=== PATIENT | male | born 1950 | race Two or more races ===

== ENCOUNTER 2018-02-06 07:30 | Emergency (ER) | payer MEDICARE, MEDICAID ==
[~2018-02-06] VITALS: Ht 162.6 cm; Wt 66.7 kg
[~2018-02-06 07:30] MED LIST: METFORMIN PO
[2018-02-06 07:54] VITALS: BP 175/98
[2018-02-06] MEDS ORDERED: cefTRIAXone SOD 1,000 MG VL IM ONE (08:30)
== END 2018-02-06 08:55 | disposition home or self-care (01) ==
LOC: ER 07:30
DX: N39.0 Urinary tract infection, site not specified (principal); E11.9 Type 2 diabetes mellitus without complications; I10 Essential (primary) hypertension
CPT/HCPCS: 99283; J0696

== ENCOUNTER 2019-08-18 20:08 | Inpatient (IN) | payer OTHER, MEDICAID ==
[~2019-08-18] VITALS: Ht 162.6 cm; Wt 63.3 kg
[2019-08-18 20:56] LABS: Hematocrit 44.2 % (41.0-53.0); Hemoglobin 15.1 g/dL (13.5-17.5); Mean Corpuscular Hemoglobin 29.8 pg (28.0-32.0); Mean Corpuscular Hgb Conc. 34.3 g/dL (32.0-36.0); Mean Corpuscular Volume 86.9 fL (80.0-100.0); Platelet Count (auto) 229 10^3/uL (140-450); Red Blood Cells 5.09 10^6/uL (4.5-5.90); Red Cell Distribution Width 13.8 % (11.8-14.3); White Blood Cell 23.4 10^3/uL (4.4-10.8)
[2019-08-18 21:02] LABS: Basophils % (manual) 0 (0.0-2.0); Blast Cells 0; Eosinophils % (manual) 0 (0-7); Metamyelocytes % 0; Myelocytes % 0; Promyelocytes % 0; Reactive Lymphocytes 0
[2019-08-18 21:21] LABS: Albumin 3.7 g/dL (3.4-5.0); Anion Gap 9 (5-15); Blood Urea Nitrogen 16 mg/dL (7-18); Calcium 9.2 mg/dL (8.5-10.1); Carbon Dioxide 26 mmol/L (21-32); Chloride 99 mmol/L (98-107); Glucose 279 mg/dL (74-106); Potassium 3.7 mmol/L (3.5-5.1); Sodium 134 mmol/L (136-145)
[2019-08-18 21:27] LABS: Alanine Aminotransferase 206 U/L (16-61); Alkaline Phosphatase 307 U/L (45-117); Aspartate Aminotransferase 117 U/L (15-37); BUN/Creatinine Ratio 16.8; Bilirubin, Total 4.5 mg/dL (0.2-1.0); GFR African American 101 mL/min; GFR Non-African American 84 mL/min
[2019-08-18 21:33] LABS: INR 1.01 (0.9-1.15); Partial Thromboplastin Time 23.9 sec (23.64-32.05)
[2019-08-18 22:27] LABS: Band Neutrophils % (manual) 10; Lymphocytes % (manual) 5 (10.0-50.0); Monocytes % (manual) 3 (0-12)
[2019-08-19] MEDS ORDERED: ONDANSETRON HCL 4 MG/2 ML VIAL IV ONE (00:30)
[2019-08-19] MEDS ORDERED: HYDROmorphone HCL 2 MG/ML VL IV ONE (00:30)
[2019-08-19] MEDS ORDERED: SODIUM CHLORIDE 0.9% 1,000 ML IV SCH (02:14)
[2019-08-19] MEDS ORDERED: MORPHINE SULFATE 4 MG/ML SYR/VIAL IV PRN (02:15)
[2019-08-19] MEDS ORDERED: DOCUSATE SOD 100 MG CAP PO PRN (02:15)
[2019-08-19] MEDS: metroNIDAZOLE 500MG/100ML 100 ML IV SCH ×2 (02:15→05:14)
[2019-08-19] MEDS ORDERED: HYDROcodone-ACET 5/325MG TAB PO PRN (02:15)
[2019-08-19] MEDS ORDERED: NITROGLYCERIN 0.4 MG SL TAB SL PRN (02:15)
[2019-08-19] MEDS ORDERED: MORPHINE SULF INJ 2 MG/ML SYRINGE 1ML IV PRN (02:15)
[2019-08-19] MEDS ORDERED: ACETAMINOPHEN 325 MG TAB PO PRN (02:15)
[2019-08-19] MEDS ORDERED: DEXTROSE (50%) 50ML SYRG IV PRN (02:15)
[2019-08-19] MEDS ORDERED: ONDANSETRON HCL 4 MG/2 ML VIAL IV PRN (02:15)
[2019-08-19 04:23] VITALS: BP 123/70
--- NOTE | 2019-08-19 04:23 | NUR ---
Telemetry admit from ER KWESI DYER admitted to Telemetry unit. Patient oriented to SARITHA BAPTISTE RN primary RN, unit, room, bed, and unit policies regarding patient care and visiting hours. Patient now on continuous telemetry monitoring, tele box #5 and telemetry reading on arrival to unit is SR 88 bpm. Patient placed on bedside oxygen 2L NC, weighed by bedscale and encouraged to call if he needs something. Fall and safety precautions in place. Call light within reach and able to use. All questions and concerns addressed, patient verbalized understanding and in agreement. Will continue to monitor q1h and prn.
[2019-08-19] MEDS: ACCU-CHEK COMFORT CURVE STRIP VI SCH ×4 (04:40→16:30)
[2019-08-19] MEDS: InsuLIN REG 1unit/0.01ml Soln (100units/ml) SC SCH ×4 (04:42→16:30)
--- NOTE | 2019-08-19 05:50 | NUR ---
ON-CALL PHARMACIST CALLED SPOKE TO PHARMACY STAFF MEMBER REGARDING MEDICATION THAT IS NOT AVAILABLE IN [facility]. STAFF MEMBER INSTRUCTED THIS RN THAT MEDICATION WILL "PROBABLY BE AVAILABLE" WITHIN NEXT COMING MINUTES. WILL CONTINUE TO MONITOR.
[2019-08-19] MEDS ORDERED: SIMV-8 PO (06:20)
[2019-08-19] MEDS ORDERED: METF-929 PO (06:20)
--- NOTE | 2019-08-19 06:20 | NUR ---
ATTEMPTED TO CALL ON-CALL PHARMACY REGARDING MEDICATION STILL NOT YET AVAILABLE. NO ANSWER. WILL CONTINUE TO TRY AGAIN LATER.
--- NOTE | 2019-08-19 06:30 | NUR ---
CALLED [facility] PHARMACY UPDATED PHARMACIST ON MEDICATION STILL NOT YET AVAILABLE (SEE EMAR). WORKING ON MEDICATION TO BE AVAILABLE, AWAITING RESPONSE, ON HOLD. WILL CONTINUE TO MONITOR.
[2019-08-19 06:53] LABS: Basophils # (auto) 0 10 ^3/uL (0-0.2); Basophils % (auto) 0.1 % (0.0-2.0); Eosinophils # (auto) 0 10 ^3/uL (0-0.8); Eosinophils % (auto) 0.1 % (0.0-7.0); Hematocrit 39.5 % (41.0-53.0); Hemoglobin 13.2 g/dL (13.5-17.5); Lymphocytes # (auto) 0.7 10 ^3/uL (0.4-5.4); Mean Corpuscular Hemoglobin 29.3 pg (28.0-32.0); Mean Corpuscular Hgb Conc. 33.5 g/dL (32.0-36.0); Mean Corpuscular Volume 87.3 fL (80.0-100.0); Monocytes # (auto) 0.9 10 ^3/uL (0-1.3); Monocytes % (auto) 3.7 % (0.0-12.0); Neutrophils # (auto) 21.9 10 ^3/uL (1.6-8.6); Neutrophils % (auto) 93.1 % (37.0-80.0); Platelet Count (auto) 230 10^3/uL (140-450); Red Blood Cells 4.52 10^6/uL (4.5-5.90); White Blood Cell 23.6 10^3/uL (4.4-10.8)
[2019-08-19] MEDS: ONDANSETRON HCL 4 MG/2 ML VIAL IV SCH ×3 (06:54→18:00)
[2019-08-19 07:08] LABS: Calcium 8.5 mg/dL (8.5-10.1); Potassium 3.8 mmol/L (3.5-5.1)
[2019-08-19 07:14] LABS: BUN/Creatinine Ratio 19.8
--- NOTE | 2019-08-19 07:25 | NUR ---
Opening Shift Note Assumed care of patient, awake and alert. No S/S of distress/SOB, no pain noted or reported. Updated on POC and instructed to call for assistance as needed, patient verbalized understanding. Bed locked in lowest position, side rails up x3, call light within reach. Will continue to monitor for changes Q1hr and PRN.
[2019-08-19 09:23] VITALS: BP 106/60
[2019-08-19] MEDS ORDERED: METOPROLOL TARTRATE 25 MG TAB PEG SCH (10:00)
[2019-08-19] MEDS ORDERED: ATORVASTATIN 20 MG TAB PO SCH (10:00)
[2019-08-19] MEDS ORDERED: LISINOPRIL 20 MG TAB PO SCH (10:00)
[2019-08-19] MEDS ORDERED: D5W/LACTATED RINGERS 1,000 ML IV SCH (12:00)
--- NOTE | 2019-08-19 12:45 | NUR ---
1240 08/19/19 I received a call from [facility] [employer] Worker Emperatriz Crabtree letting me know that she spoke with Dr Dunn and because the patient may need surgical intervention, he will order transfer to [facility]. Emperatriz Crabtree will work on a bed assignment and let me know when one becomes available. I let her know that there was no transfer order placed yet. I called [facility] ([phone]) and spoke with Medina, placed them on will call (with auth number [id number] given by Emperatriz Crabtree at [facility]) pending transfer to [facility].
[2019-08-19] MEDS: PIPERACILLIN-TAZOB 3.375GM 100 ML IV SCH ×2 (12:54→18:00)
[2019-08-19 13:00] VITALS: BP 91/56
--- NOTE | 2019-08-19 14:28 | NUR ---
9889 I received a call from Emperatriz Crabtree-[facility] Institutional Research Director Emperatriz Crabtree letting me know that patient will be going to room 270 at [facility], Dr. Dunn is accepting physician, nurse to call report to [phone] extension [phone]. I called [facility] [phone] and spoke with Gume, grape picker time set for 1800-nurse made aware.
[2019-08-19 16:02] VITALS: BP 91/50
[2019-08-19 16:19] VITALS: BP 100/55
--- NOTE | 2019-08-19 18:14 | NUR ---
SPOKE WITH [facility] TRANSPORT. TIME CHANGED TO 1899
--- NOTE | 2019-08-19 18:44 | NUR ---
REPORT GIVEN TO HARSHIL IRBY AT [facility].
--- NOTE | 2019-08-19 19:01 | NUR ---
Discharge to Acute Care- [facility]. Discharge instructions given as ordered. All questions and concerns addressed. Patient verbalized understanding. Medication reconciliation form completed and copy given to patient. Telemetry unit returned to ICU. Report given to Nancy Wallace at [facility]. Patient transported by [facility] with all personal belongings. No distress noted at time of departure.
== END 2019-08-19 19:01 | disposition short-term general hospital (02) | DRG 446 ==
LOC: ER 20:11 → TELE 20:12 → TELE-EAST 08-19 04:25
PROVIDERS: ADMIT Hospitalist; ATTEND Hospitalist
DX: K80.63 Calculus of gallbladder and bile duct with acute cholecystitis with obstruction (principal); D72.823 Leukemoid reaction; E78.5 Hyperlipidemia, unspecified; E11.65 Type 2 diabetes mellitus with hyperglycemia; R07.89 Other chest pain; N40.0 Benign prostatic hyperplasia without lower urinary tract symptoms; I25.10 Atherosclerotic heart disease of native coronary artery without angina pectoris; Z79.84 Long term (current) use of oral hypoglycemic drugs; Z83.3 Family history of diabetes mellitus; Z95.5 Presence of coronary angioplasty implant and graft; I25.2 Old myocardial infarction; Z79.899 Other long term (current) drug therapy
CPT/HCPCS: 36415; 71046; 74176; 74181; 80048; 80053; 80061; 82962; 83036; 83735; 83880; 84443; 84484; 85007; 85025; 85027; 85610; 85730; 93005; 93306; 96365; 96375; G0378; J1815; J2405; J2543; J3490; J7042

== ENCOUNTER 2019-09-03 04:08 | Emergency (ER) | payer OTHER, MEDICAID ==
[~2019-09-03] VITALS: Ht 162.6 cm; Wt 59.9 kg
[~2019-09-03 04:08] MED LIST changes: +METF-929 PO; +SIMV-8 PO
[2019-09-03 04:41] LABS: Urine Bacteria FEW /hpf (None Seen); Urine Blood 2+ /uL (Negative); Urine WBC <1 /hpf (0 - 3)
[2019-09-03 05:00] VITALS: BP 120/71
== END 2019-09-03 05:14 | disposition home or self-care (01) ==
LOC: ER 04:08
DX: R33.9 Retention of urine, unspecified (principal)
CPT/HCPCS: 81001

== ENCOUNTER 2021-07-02 22:41 | Emergency (ER) | payer OTHER, MEDICAID ==
[~2021-07-02] VITALS: Ht 170.2 cm; Wt 69.4 kg
[2021-07-02 23:32] LABS: Basophils # (auto) 0 10 ^3/uL (0-0.2); Basophils % (auto) 0.7 % (0.0-2.0); Eosinophils # (auto) 0 10 ^3/uL (0-0.8); Eosinophils % (auto) 0.7 % (0.0-7.0); Hematocrit 41.1 % (41.0-53.0); Hemoglobin 13.9 g/dL (13.5-17.5); Lymphocytes # (auto) 2.1 10 ^3/uL (0.4-5.4); Lymphocytes % (auto) 31.3 % (10.0-50.0); Mean Corpuscular Hemoglobin 29.6 pg (28.0-32.0); Mean Corpuscular Hgb Conc. 33.8 g/dL (32.0-36.0); Mean Corpuscular Volume 87.5 fL (80.0-100.0); Monocytes # (auto) 0.7 10 ^3/uL (0-1.3); Monocytes % (auto) 10.8 % (0.0-12.0); Neutrophils # (auto) 3.7 10 ^3/uL (1.6-8.6); Neutrophils % (auto) 56.5 % (37.0-80.0); Nucleated Red Blood Cells % 0.1 %; Red Blood Cells 4.69 10^6/uL (4.5-5.90); Red Cell Distribution Width 13.7 % (11.8-14.3); White Blood Cell 6.6 10^3/uL (4.4-10.8)
[2021-07-02 23:48] LABS: Albumin 3.9 g/dL (3.4-5.0); Calcium 8.6 mg/dL (8.5-10.1); Potassium 3.3 mmol/L (3.5-5.1)
[2021-07-02 23:55] LABS: BUN/Creatinine Ratio 13.9; Bilirubin, Total 0.3 mg/dL (0.2-1.0); Total Protein 7.3 g/dL (6.4-8.2)
[2021-07-03 04:13] VITALS: BP 101/64
== END 2021-07-03 04:16 | disposition home or self-care (01) ==
LOC: ER 22:41
DX: R42 Dizziness and giddiness (principal); R51.9 Headache, unspecified; E11.9 Type 2 diabetes mellitus without complications; E78.5 Hyperlipidemia, unspecified; Z90.49 Acquired absence of other specified parts of digestive tract
CPT/HCPCS: 36415; 71045; 80053; 83880; 84484; 85025; 93005

== ENCOUNTER → 2022-05-04 | Outpatient (CLI) | payer OTHER, MEDICAID | END | disposition home or self-care (01) | LOC: LAB 13:25 | PROVIDERS: ATTEND Internal Medicine | DX: Z12.11 Encounter for screening for malignant neoplasm of colon (principal) | CPT/HCPCS: 82270 ==

== ENCOUNTER → 2022-05-16 | Outpatient (CLI) | payer OTHER, MEDICAID ==
[2022-05-16 11:21] LABS: Basophils # (auto) 0.1 10 ^3/uL (0-0.2); Basophils % (auto) 0.9 % (0.0-2.0); Eosinophils # (auto) 0.1 10 ^3/uL (0-0.8); Eosinophils % (auto) 1.4 % (0.0-7.0); Hematocrit 44.8 % (41.0-53.0); Hemoglobin 14.9 g/dL (13.5-17.5); Lymphocytes # (auto) 2.4 10 ^3/uL (0.4-5.4); Lymphocytes % (auto) 31.1 % (10.0-50.0); Mean Corpuscular Hemoglobin 29.1 pg (28.0-32.0); Mean Corpuscular Hgb Conc. 33.3 g/dL (32.0-36.0); Mean Corpuscular Volume 87.3 fL (80.0-100.0); Monocytes # (auto) 0.9 10 ^3/uL (0-1.3); Monocytes % (auto) 11.2 % (0.0-12.0); Neutrophils # (auto) 4.4 10 ^3/uL (1.6-8.6); Neutrophils % (auto) 55.4 % (37.0-80.0); Nucleated Red Blood Cells % 0.2 %; Red Blood Cells 5.14 10^6/uL (4.5-5.90); Red Cell Distribution Width 13.9 % (11.8-14.3); White Blood Cell 7.9 10^3/uL (4.4-10.8)
[2022-05-16 11:35] LABS: BUN/Creatinine Ratio 14.7; Calcium 9.2 mg/dL (8.5-10.1); Potassium 4.8 mmol/L (3.5-5.1)
[2022-05-16 17:00] LABS: Urine Specific Gravity 1.016 (1.001-1.035)
[2022-05-16 17:01] LABS: Urine Blood Negative /uL (Negative)
== END | disposition home or self-care (01) ==
LOC: LAB 10:48
PROVIDERS: ATTEND Student in an Organized Health Care Education/Training Program
DX: E11.9 Type 2 diabetes mellitus without complications (principal); N39.0 Urinary tract infection, site not specified; I10 Essential (primary) hypertension; N40.1 Benign prostatic hyperplasia with lower urinary tract symptoms
CPT/HCPCS: 36415; 80048; 81001; 83036; 84153; 84154; 85025; 87086

== ENCOUNTER 2022-07-15 12:32 | Day surgery (SDC) | payer OTHER, MEDICAID ==
[2022-07-13 09:40] LABS: Basophils # (auto) 0.1 10 ^3/uL (0-0.2); Basophils % (auto) 0.6 % (0.0-2.0); Eosinophils # (auto) 0.1 10 ^3/uL (0-0.8); Eosinophils % (auto) 0.8 % (0.0-7.0); Hematocrit 43.4 % (41.0-53.0); Hemoglobin 14.5 g/dL (13.5-17.5); Lymphocytes # (auto) 2.2 10 ^3/uL (0.4-5.4); Lymphocytes % (auto) 20.2 % (10.0-50.0); Mean Corpuscular Hemoglobin 28.9 pg (28.0-32.0); Mean Corpuscular Hgb Conc. 33.4 g/dL (32.0-36.0); Mean Corpuscular Volume 86.4 fL (80.0-100.0); Monocytes % (auto) 9.1 % (0.0-12.0); Neutrophils # (auto) 7.6 10 ^3/uL (1.6-8.6); Neutrophils % (auto) 69.3 % (37.0-80.0); Red Blood Cells 5.02 10^6/uL (4.5-5.90); Red Cell Distribution Width 13.6 % (11.8-14.3)
[2022-07-13 09:58] LABS: INR 1.01 (0.9-1.15); Partial Thromboplastin Time 29.3 sec (24.6-33.4)
[2022-07-13 11:20] LABS: Potassium 4.2 mmol/L (3.5-5.1)
[2022-07-13 11:33] LABS: BUN/Creatinine Ratio 14.4; Bilirubin, Total 0.7 mg/dL (0.2-1.0); Calcium 8.8 mg/dL (8.5-10.1); Total Protein 7.5 g/dL (6.4-8.2)
[~2022-07-15] VITALS: Ht 162.6 cm; Wt 66.7 kg
[~2022-07-15 12:32] MED LIST changes: +ASPI81CH59 PO; +FINA5TAB4 PO; +LISI2.5T47 PO; -METFORMIN PO; +PIO30T PO
[2022-07-15] MEDS: fentaNYL CITRATE 100 MCG/2 ML VL ONE ×2 (14:40→14:49)
[2022-07-15] MEDS: MIDAZOLAM HCL 2MG/2ML 2ml VIAL (1mg/ml) ONE ×2 (14:40→14:49)
[2022-07-15] MEDS: diphenhdrAMINE HCL 50 MG/1 ML VL ONE ×2 (14:43→14:49)
[2022-07-15 15:35] VITALS: BP 139/73
== END 2022-07-15 15:50 | disposition home or self-care (01) ==
LOC: GI 12:32
PROVIDERS: ATTEND Internal Medicine Gastroenterology
DX: R10.32 Left lower quadrant pain (principal); K57.30 Diverticulosis of large intestine without perforation or abscess without bleeding; K64.0 First degree hemorrhoids; Z20.822 Contact with and (suspected) exposure to COVID-19
CPT/HCPCS: 36415; 45378; 80053; 82962; 85025; 85610; 85730; J1200; J2250; J3010; J7030; U0003; 99152

== ENCOUNTER → 2023-05-10 | Outpatient (CLI) | payer OTHER ==
[~2023-05-10] MED LIST changes: -SIMV-8 PO; +SIMV20TA20 PO
[2023-05-10 10:12] LABS: Basophils # (auto) 0 10 ^3/uL (0-0.2); Basophils % (auto) 0.6 % (0.0-2.0); Eosinophils # (auto) 0.1 10 ^3/uL (0-0.8); Eosinophils % (auto) 1.5 % (0.0-7.0); Hematocrit 42.2 % (41.0-53.0); Lymphocytes # (auto) 2.4 10 ^3/uL (0.4-5.4); Lymphocytes % (auto) 34.1 % (10.0-50.0); Mean Corpuscular Hemoglobin 28.8 pg (28.0-32.0); Mean Corpuscular Hgb Conc. 33.2 g/dL (32.0-36.0); Mean Corpuscular Volume 86.9 fL (80.0-100.0); Monocytes # (auto) 0.9 10 ^3/uL (0-1.3); Monocytes % (auto) 12.4 % (0.0-12.0); Neutrophils # (auto) 3.6 10 ^3/uL (1.6-8.6); Neutrophils % (auto) 51.4 % (37.0-80.0); Nucleated Red Blood Cells % 0.1 %; Red Blood Cells 4.86 10^6/uL (4.5-5.90); Red Cell Distribution Width 14.1 % (11.8-14.3)
[2023-05-10 10:45] LABS: Urine Bacteria MANY /hpf (None Seen); Urine Blood Negative /uL (Negative); Urine Clarity Clear (Clear); Urine Protein, UAD Negative (Negative); Urine Specific Gravity 1.003 (1.001-1.035); Urine Urobilinogen Normal (Negative); Urine WBC 8 /hpf (0 - 3)
[2023-05-10 10:46] LABS: Urine Color Straw (Yellow)
[2023-05-10 10:57] LABS: Chloride 102 mmol/L (98-107); Potassium 4.5 mmol/L (3.5-5.1); Sodium 137 mmol/L (136-145)
[2023-05-10 10:58] LABS: Anion Gap 5 (5-15); Calcium 9.7 mg/dL (8.5-10.1); Carbon Dioxide 30 mmol/L (20-30)
[2023-05-10 11:03] LABS: BUN/Creatinine Ratio 13.5 (10.0-20.0); Blood Urea Nitrogen 12 mg/dL (9-23); Glucose 125 mg/dL (74-106)
== END | disposition home or self-care (01) ==
LOC: LAB 09:36
PROVIDERS: ATTEND Student in an Organized Health Care Education/Training Program
DX: E11.9 Type 2 diabetes mellitus without complications (principal); N40.0 Benign prostatic hyperplasia without lower urinary tract symptoms
CPT/HCPCS: 36415; 80048; 81001; 83036; 84153; 85025

== ENCOUNTER → 2023-11-13 | Outpatient (CLI) | payer OTHER ==
[2023-11-13 10:29] LABS: Basophils # (auto) 0 10 ^3/uL (0-0.2); Basophils % (auto) 0.6 % (0.0-2.0); Eosinophils # (auto) 0.1 10 ^3/uL (0-0.8); Eosinophils % (auto) 1.4 % (0.0-7.0); Hematocrit 42.4 % (41.0-53.0); Hemoglobin 14.4 g/dL (13.5-17.5); Lymphocytes # (auto) 2.5 10 ^3/uL (0.4-5.4); Lymphocytes % (auto) 30.6 % (10.0-50.0); Mean Corpuscular Hemoglobin 29.6 pg (28.0-32.0); Mean Corpuscular Hgb Conc. 34.1 g/dL (32.0-36.0); Monocytes # (auto) 0.8 10 ^3/uL (0-1.3); Monocytes % (auto) 9.7 % (0.0-12.0); Neutrophils # (auto) 4.7 10 ^3/uL (1.6-8.6); Neutrophils % (auto) 57.7 % (37.0-80.0); Nucleated Red Blood Cells % 0.1 %; Red Blood Cells 4.88 10^6/uL (4.5-5.90); Red Cell Distribution Width 13.6 % (11.8-14.3); White Blood Cell 8.2 10^3/uL (4.4-10.8)
[2023-11-13 11:38] LABS: Alanine Aminotransferase 13 U/L (7-40); Alkaline Phosphatase 105 U/L (46-116); Anion Gap 6 (5-15); Aspartate Aminotransferase 9 U/L (13-40); BUN/Creatinine Ratio 14.8 (10.0-20.0); Blood Urea Nitrogen 13 mg/dL (9-23); Calcium 9.5 mg/dL (8.5-10.1); Carbon Dioxide 27 mmol/L (20-30); Chloride 105 mmol/L (98-107); Glucose 131 mg/dL (74-106); LDL Cholesterol 125 mg/dL (< 100); Potassium 4.1 mmol/L (3.5-5.1); Sodium 138 mmol/L (136-145); Triglycerides 156 mg/dL (< 150)
[2023-11-13 11:39] LABS: Bilirubin, Total 0.6 mg/dL (0.2-1.0); Cholesterol 198 mg/dL (< 200); HDL Cholesterol 46 mg/dL (40-59)
[2023-11-13 11:42] LABS: Creatinine, Urine 68.55 mg/dL (30.0-125.0)
[2023-11-13 11:44] LABS: Albumin 4.5 g/dL (3.2-4.8)
[2023-11-13 11:45] LABS: Urine Bacteria FEW /hpf (None Seen); Urine Blood Negative /uL (Negative); Urine Clarity Turbid (Clear); Urine Color Light-Yellow (Yellow); Urine Protein, UAD Negative (Negative); Urine Specific Gravity 1.016 (1.001-1.035); Urine Urobilinogen Normal (Negative); Urine WBC 238 /hpf (0 - 3); Urine pH 5.5 (5.0-9.0)
== END | disposition home or self-care (01) ==
LOC: LAB 09:55
PROVIDERS: ATTEND Student in an Organized Health Care Education/Training Program
DX: I10 Essential (primary) hypertension (principal); E11.9 Type 2 diabetes mellitus without complications; N40.0 Benign prostatic hyperplasia without lower urinary tract symptoms
CPT/HCPCS: 36415; 80053; 80061; 81001; 82043; 82570; 83036; 84153; 85025

== ENCOUNTER → 2024-05-14 | Outpatient (CLI) | payer OTHER ==
[2024-05-14 11:38] LABS: Basophils # (auto) 0 10 ^3/uL (0-0.2); Basophils % (auto) 0.5 % (0.0-2.0); Eosinophils # (auto) 0.1 10 ^3/uL (0-0.8); Eosinophils % (auto) 0.9 % (0.0-7.0); Hematocrit 42.7 % (41.0-53.0); Hemoglobin 14.4 g/dL (13.5-17.5); Lymphocytes # (auto) 2.2 10 ^3/uL (0.4-5.4); Lymphocytes % (auto) 27.9 % (10.0-50.0); Mean Corpuscular Hemoglobin 29.6 pg (28.0-32.0); Mean Corpuscular Hgb Conc. 33.8 g/dL (32.0-36.0); Mean Corpuscular Volume 87.8 fL (80.0-100.0); Monocytes # (auto) 0.9 10 ^3/uL (0-1.3); Monocytes % (auto) 11.6 % (0.0-12.0); Neutrophils # (auto) 4.7 10 ^3/uL (1.6-8.6); Neutrophils % (auto) 59.1 % (37.0-80.0); Platelet Count (auto) 183 10^3/uL (140-450); Red Blood Cells 4.86 10^6/uL (4.5-5.90)
[2024-05-14 11:47] LABS: Urine Bacteria FEW /hpf (None Seen); Urine Blood Negative /uL (Negative); Urine Clarity Clear (Clear); Urine Color Light-Yellow (Yellow); Urine Protein, UAD Negative (Negative); Urine Specific Gravity 1.012 (1.001-1.035); Urine Urobilinogen Normal (Negative); Urine WBC 14 /hpf (0 - 3)
[2024-05-14 12:09] LABS: Alanine Aminotransferase 14 U/L (7-40); Albumin 4.5 g/dL (3.2-4.8); Alkaline Phosphatase 103 U/L (46-116); Anion Gap 4 (5-15); Aspartate Aminotransferase 13 U/L (13-40); BUN/Creatinine Ratio 14.9 (10.0-20.0); Bilirubin, Total 0.8 mg/dL (0.2-1.0); Blood Urea Nitrogen 14 mg/dL (9-23); Calcium 9.9 mg/dL (8.7-10.4); Carbon Dioxide 31 mmol/L (20-31); Chloride 102 mmol/L (98-107); Sodium 137 mmol/L (136-145); Total Protein 7.1 g/dL (5.7-8.2)
[2024-05-14 12:10] LABS: Glucose 121 mg/dL (74-106)
[2024-05-15 08:06] LABS: PSA Free 1.09 ng/mL; Prostate Specific Antigen 5.7 ng/mL (0.0-4.0)
== END | disposition home or self-care (01) ==
LOC: LAB 11:20
PROVIDERS: ATTEND Student in an Organized Health Care Education/Training Program
DX: N40.0 Benign prostatic hyperplasia without lower urinary tract symptoms (principal); E11.9 Type 2 diabetes mellitus without complications; I10 Essential (primary) hypertension
CPT/HCPCS: 36415; 80053; 81001; 83036; 84153; 84154; 85025